=== PATIENT | male | born 1965 | race Caucasian/White ===

== ENCOUNTER 2017-05-07 13:43 | Inpatient (IN) | payer OTHER ==
[~2017-05-07] VITALS: Ht 167.6 cm; Wt 94.0 kg
[2017-05-07 14:19] LABS: BASOPHIL % 0.6 % (0-2); PLATELET COUNT 214 x10^3mcL (130-400); RED CELL DISTRIBUTION WIDTH 12.7 % (11.5-14.5)
[2017-05-07 14:28] LABS: CALCIUM 8.2 mg/dL (8.5-10.1); CARBON DIOXIDE 27.5 mmol/L (21-32); CHLORIDE SERUM 104 mmol/L (98-107); CREATININE SERUM 0.9 mg/dL (0.7-1.3); GFR1 > 60 mL/min; GLUCOSE SERUM 102 mg/dL (74-106); POTASSIUM SERUM 4.4 mmol/L (3.5-5.1); SODIUM SERUM 139 mmol/L (136-145)
[2017-05-07 14:32] LABS: ALBUMIN 3.7 g/dL (3.4-5.0); ALKALINE PHOSPHATASE 56 U/L (46-116); ALT/SGPT 48 U/L (16-63); AST/SGOT 33 U/L (15-37); BILIRUBIN TOTAL 0.4 mg/dL (0.20-1.00); CHOLESTEROL 166 mg/dL (<200); HDL CHOLESTEROL 48 mg/dL (40-60); TOTAL PROTEIN, SERUM 6.9 g/dL (6.4-8.2); URIC ACID 3.6 mg/dL (3.5-7.2)
[2017-05-07 16:20] LABS: T3 TOTAL 1.19 ng/mL
[2017-05-07 16:30] LABS: FREE T4 1.1 ng/dL (0.76-1.46); FREE THYROXINE INDEX 3.2 ug/dL (1.4-4.5); T4(THYROXINE) 9.2 ug/dL (4.7-13.3)
[2017-05-07 16:54] LABS: UA SPECIFIC GRAVITY 1.015 (1.005-1.035); urine erythrocyte NEGATIVE (NEGATIVE)
[2017-05-07 17:03] LABS: microscopic required? NO
[2017-05-07 18:25] VITALS: BP 122/79
[2017-05-07 21:22] VITALS: BP 124/74
[2017-05-08 05:56] VITALS: BP 110/55
[2017-05-08 06:45] LABS: CALCIUM 8.3 mg/dL (8.5-10.1); CARBON DIOXIDE 26.9 mmol/L (21-32); CHLORIDE SERUM 105 mmol/L (98-107); CREATININE SERUM 0.9 mg/dL (0.7-1.3); GFR1 > 60 mL/min; GLUCOSE SERUM 93 mg/dL (74-106); MAGNESIUM 2.3 mg/dL (1.8-2.4); PHOSPHOROUS 3.8 mg/dL (2.5-4.9); SODIUM SERUM 138 mmol/L (136-145)
[2017-05-08 08:14] VITALS: BP 111/68
[2017-05-08 12:46] VITALS: BP 111/79
[2017-05-08] MEDS ORDERED: METOPROLOL TART25 M1 PO (15:49)
[2017-05-08] MEDS ORDERED: ESGIC CAPSULE1 EACH PO (15:50)
[2017-05-08] MEDS ORDERED: ECO81 PO (15:50)
[2017-05-08] MEDS ORDERED: LIPI10 PO (15:55)
[2017-05-08] MEDS ORDERED: ZES5 PO (15:55)
[2017-05-08 16:05] VITALS: BP 111/79
== END 2017-05-08 17:00 | disposition home or self-care (01) | DRG 392 ==
LOC: ED 13:43 → DU 15:46
PROVIDERS: Emergency Medicine; ADMIT Family Medicine
DX: K21.9 Gastro-esophageal reflux disease without esophagitis (principal); I10 Essential (primary) hypertension; R73.03 Prediabetes; E83.51 Hypocalcemia; E66.9 Obesity, unspecified; Z68.33 Body mass index [BMI] 33.0-33.9, adult
CPT/HCPCS: 82962; 83880; 84439; J7030; Q0092